=== PATIENT | female | born 1950 | race Caucasian/White ===

== ENCOUNTER → 2022-01-21 | Outpatient (CLI) | payer MEDICARE | END | disposition home or self-care (01) | LOC: RAH 11:28 | PROVIDERS: ATTEND Orthopaedic Surgery | DX: M75.41 Impingement syndrome of right shoulder (principal) | CPT/HCPCS: 73221 ==

== ENCOUNTER → 2022-06-10 | Outpatient (CLI) | payer MEDICARE | END | disposition home or self-care (01) | LOC: RAH 08:48 | PROVIDERS: ATTEND Physical Medicine & Rehabilitation | DX: M75.112 Incomplete rotator cuff tear or rupture of left shoulder, not specified as traumatic (principal); M19.012 Primary osteoarthritis, left shoulder; M75.101 Unspecified rotator cuff tear or rupture of right shoulder, not specified as traumatic; M75.50 Bursitis of unspecified shoulder | CPT/HCPCS: 73221 ==

== ENCOUNTER 2022-09-15 05:36 | Day surgery (SDC) | payer MEDICARE ==
[2022-09-14 11:18] VITALS: BP 110/62
[2022-09-15] VITALS (11 sets, daily range): BP systolic 108–146; BP diastolic 58–78
[~2022-09-15] VITALS: Ht 162.6 cm; Wt 85.5 kg
[2022-09-15] MEDS ORDERED: LACTATED RINGERS 1000ML 1,000 ML IV ONE (06:20)
[2022-09-15] MEDS: CEFAZOLIN SODIUM 2 GM VIAL IVPB SCH ×2 (06:41→07:30)
[2022-09-15] MEDS ORDERED: LISI1TAB51 PO (06:44)
[2022-09-15] MEDS ORDERED: SIMV-43 PO (06:44)
[2022-09-15] MEDS ORDERED: GABA-529 PO (06:44)
[2022-09-15 07:03] LABS: BASOPHILS % (AUTO) 0.2 % (0.0-5.0); EOSINOPHILS % (AUTO) 0.7 % (0.0-8.0); HEMATOCRIT 37.2 % (36-48); LYMPHOCYTES % (AUTO) 23.3 % (21.0-51.0); MEAN CORPUSCULAR HEMOGLOBIN 28.2 pg (27.0-33.0); MEAN CORPUSCULAR HGB CONC 32.5 g/dL (32.0-36.0); MEAN CORPUSCULAR VOLUME 86.7 fL (79-99); MONOCYTES % (AUTO) 6.4 % (3.0-13.0); NEUTROPHILS % (AUTO) 69.2 % (40.0-77.0); PLATELET COUNT (AUTO) 192 K/uL (130-400); RED BLOOD CELL COUNT(AUTO) 4.29 MIL/uL (4.00-5.50); RED CELL DISTRIBUTION WIDTH 13.8 % (11.0-15.5); WHITE BLOOD COUNT (AUTO) 5.9 K/uL (4.8-10.8)
[2022-09-15] MEDS ORDERED: PROPOFOL 10 MG/ML 20ML VIAL IV ONE ×2 (07:14→07:52)
[2022-09-15] MEDS ORDERED: MIDAZOLAM HCL 1 MG/ML 2ML VIAL ONE (07:14)
[2022-09-15 07:15] LABS: CREATININE 0.8 mg/dL (0.5-1.5); POTASSIUM 3.3 mmol/L (3.5-5.1)
[2022-09-15] MEDS ORDERED: FENTANYL CITRATE PF 50 MCG/1 ML 2ML VIAL ONE (07:15)
[2022-09-15] MEDS ORDERED: ESMOLOL HCL 10 MG/ML 10 ML VIAL ONE (07:16)
[2022-09-15] MEDS ORDERED: LIDOCAINE HCL-MPF 0.5% 50ML VIAL IJ ONE (07:16)
[2022-09-15] MEDS ORDERED: KETAMINE 50MG/ML SYRINGE 50 MG/ML DISP.SYRIN ONE (07:17)
[2022-09-15] MEDS ORDERED: ONDANSETRON 4MG INJ ONE (07:19)
[2022-09-15] MEDS ORDERED: PHENYLEPHRINE HCL 10 MG/ML 1ML VIAL IV ONE (07:53)
== END 2022-09-15 09:30 | disposition home or self-care (01) ==
LOC: DAH 05:36
PROVIDERS: ATTEND Neurological Surgery
DX: G56.01 Carpal tunnel syndrome, right upper limb (principal); Z20.822 Contact with and (suspected) exposure to COVID-19; I10 Essential (primary) hypertension; E66.01 Morbid (severe) obesity due to excess calories; Z98.891 History of uterine scar from previous surgery
CPT/HCPCS: 87426; 93005; 64721; 80048; 85025; 36415; A6260; A4663; J7120; J3010; J3490 ×3; J2250; J2704 ×2; J2405; J2370; J0690; A4215; A4223; A4222; A4221